=== PATIENT | female | born 1960 | race African-American/Black ===

== ENCOUNTER 2020-09-17 18:26 | Inpatient (IN) ==
[2020-09-17] MEDS ORDERED: Ondansetron 4 mg VIAL 2 MG/ML 2 ml VIAL IV ONE (19:06)
[2020-09-17] MEDS ORDERED: NS 0.9% 1000 ml BAG 1,000 ML IV ONE (19:14)
[2020-09-17 20:12] LABS: Hematocrit 46 % (35-47); Hemoglobin 15.3 g/dL (12.0-16.0); Mean Corpuscular HGB Conc 33 g/dL (31-36); Mean Corpuscular Hemoglobin 27 pg (27-31); Mean Corpuscular Volume 81 fL (80-97); Red Blood Count 5.66 10^6 /uL (3.70-4.87); Red Cell Distribution Width 14 % (10-15); White Blood Count 12.7 10^3/uL (3.5-10.8)
[2020-09-17 20:19] LABS: ABS Basophils 0.1 10^3/ul (0-0.2); ABS Lymphocytes 2.5 10^3/ul (1.0-4.8); ABS Monocytes 0.8 10^3/ul (0-0.8); ABS Neutrophils 9.3 10^3/ul (1.5-7.7); Eosinophil % 0.1 %; Lymphocyte % 19.4 %; Nucleated Red Blood Cells % 0.2
[2020-09-17] MEDS ORDERED: Ciprofloxacin 400mg IVPREMIX 400 MG/200 ML BAG IVPB ONE (20:28)
[2020-09-17 20:52] LABS: Albumin 4.5 g/dL (3.2-5.2); Albumin/Globulin Ratio 0.9 (1-3); BUN/Creatinine Ratio 19.6 (8-20); C Reactive Protein 63.17 mg/L (<8.01); Calcium 10.2 mg/dL (8.6-10.3); EGFR African American 62.9 (>60); Globulin 4.8 g/dL (2-4); Potassium 2.9 mmol/L (3.5-5.0); Total Bilirubin 1.4 mg/dL (0.2-1.0); Total Protein 9.3 g/dL (6.4-8.9)
[2020-09-17] MEDS ORDERED: Potassium Chlor 20 meq TAB.ER PO ONE (20:55)
[2020-09-17 20:59] LABS: Platelet Count 184 10^3/uL (150-450)
[2020-09-17 21:30] LABS: Magnesium 1.9 mg/dL (1.9-2.7)
[2020-09-18] MEDS ORDERED: Ondansetron 4 mg VIAL 2 MG/ML 2 ml VIAL IV PRN (01:49)
[2020-09-18] MEDS: KCL 10 MEQ/50 ML IVPREMIX 10 MEQ/50 ML BAG IV ONE ×2 (02:50)
[2020-09-18] MEDS: Morphine 2 MG/ML SYRINGE IV PRN ×3 (03:16→23:18)
[2020-09-18] MEDS ORDERED: Albuterol HFA INHALER 8 gm MDI INH PRN (03:19)
[2020-09-18] MEDS: Potassium Chlor 20 meq TAB.ER PO SCH ×2 (04:09→08:33)
[2020-09-18] MEDS: NS 0.9% 1000 ml BAG 1,000 ML IV SCH ×2 (04:11→15:50)
[2020-09-18 08:17] LABS: BUN/Creatinine Ratio 20.8 (8-20); Blood Urea Nitrogen 20 mg/dL (6-24); CO2 Carbon Dioxide 23 mmol/L (22-32); Calcium 8.8 mg/dL (8.6-10.3); Chloride 102 mmol/L (101-111); EGFR African American 71.3 (>60); EGFR Non-African American 58.9 (>60); Glucose 100 mg/dL (70-100); Sodium 136 mmol/L (135-145)
[2020-09-18] MEDS: Ondansetron ODT 4 mg TAB 4 MG TAB SL PRN ×2 (08:32→17:36)
[2020-09-18 08:33] LABS: Anion Gap 11 mmol/L (2-11)
[2020-09-18] MEDS: metroNIDAZOLE IV 500 MG/100ML 500 MG/100 ML BAG IVPB SCH ×3 (08:34→23:49)
[2020-09-18] MEDS ORDERED: Lisinopril/HCTZ 20/25 TAB (NF) PO SCH (09:00)
[2020-09-18] MEDS: cefTRIAXone 1 gm/50 mL NS BAG 1 GM/50 ML BAG IVPB SCH (11:22)
[2020-09-18 15:39] LABS: Magnesium 1.9 mg/dL (1.9-2.7); Potassium 3.2 mmol/L (3.5-5.0)
[2020-09-18] MEDS ORDERED: Potassium Chlor 20 meq TAB.ER PO ONE (18:34)
[2020-09-18] MEDS ORDERED: NS 0.9% 1000 ml BAG 1,000 ML IV SCH (18:38)
[2020-09-18] MEDS ORDERED: KCL 20 MEQ/100 ML IVPREMIX 20 MEQ/100 ML BAG IV SCH (19:00)
[2020-09-19 00:08] LABS: Urine Appearance Cloudy; Urine Bilirubin Negative (Negative); Urine Blood 3+ (Negative); Urine Color Yellow; Urine Glucose Negative (Negative); Urine Ketones Trace (Negative); Urine Nitrite Negative (Negative); Urine Protein Negative (Negative); Urine Specific Gravity 1.018 (1.010-1.030); Urine Urobilinogen Negative (Negative)
[2020-09-19 00:12] LABS: Urine Bacteria 1+ (Absent); Urine Red Blood Cell 3+(>10/hpf) (Absent); Urine Squamous Epithelial Cell Present (Absent); Urine White Blood Cell 3+(>20/hpf) (Absent)
[2020-09-19 07:33] LABS: ABS Eosinophils 0.1 10^3/ul (0-0.6); ABS Lymphocytes 2.7 10^3/ul (1.0-4.8); ABS Monocytes 0.6 10^3/ul (0-0.8); ABS Neutrophils 3.5 10^3/ul (1.5-7.7); Eosinophil % 1.1 %; Hematocrit 35 % (35-47); Hemoglobin 11.5 g/dL (12.0-16.0); Lymphocyte % 39.5 %; Mean Corpuscular HGB Conc 33 g/dL (31-36); Mean Corpuscular Hemoglobin 28 pg (27-31); Mean Corpuscular Volume 83 fL (80-97); Mean Platelet Volume 8.3 fL (7.4-10.4); Platelet Count 180 10^3/uL (150-450); Red Blood Count 4.18 10^6 /uL (3.70-4.87); Red Cell Distribution Width 14 % (10-15)
[2020-09-19 07:50] LABS: BUN/Creatinine Ratio 22.1 (8-20); Calcium 8.7 mg/dL (8.6-10.3); EGFR African American 91.9 (>60); Potassium 3.5 mmol/L (3.5-5.0)
[2020-09-19] MEDS: metroNIDAZOLE IV 500 MG/100ML 500 MG/100 ML BAG IVPB SCH ×2 (08:45→16:44)
[2020-09-19] MEDS: Potassium Chlor 20 meq TAB.ER PO SCH (10:31)
[2020-09-19] MEDS: cefTRIAXone 1 gm/50 mL NS BAG 1 GM/50 ML BAG IVPB SCH (10:32)
[2020-09-19] MEDS: Morphine 2 MG/ML SYRINGE IV PRN ×2 (10:32→17:25)
[2020-09-20] MEDS: metroNIDAZOLE IV 500 MG/100ML 500 MG/100 ML BAG IVPB SCH ×4 (01:01→23:34)
[2020-09-20] MEDS: Morphine 2 MG/ML SYRINGE IV PRN ×3 (08:43→22:52)
[2020-09-20] MEDS: Ondansetron ODT 4 mg TAB 4 MG TAB SL PRN (09:11)
[2020-09-20] MEDS: Potassium Chlor 20 meq TAB.ER PO SCH (09:11)
[2020-09-20] MEDS: cefTRIAXone 1 gm/50 mL NS BAG 1 GM/50 ML BAG IVPB SCH (10:08)
[2020-09-20] MEDS: Ondansetron 4 mg VIAL 2 MG/ML 2 ml VIAL IV PRN (15:15)
[2020-09-20] MEDS: HYDROcodone/ACETAMIN 5/325 mg TAB PO PRN (15:31)
[2020-09-21 06:38] LABS: ABS Eosinophils 0.2 10^3/ul (0-0.6); ABS Lymphocytes 2.3 10^3/ul (1.0-4.8); ABS Monocytes 0.4 10^3/ul (0-0.8); ABS Neutrophils 1.2 10^3/ul (1.5-7.7); Eosinophil % 3.8 %; Hematocrit 37 % (35-47); Lymphocyte % 55.9 %; Mean Corpuscular HGB Conc 33 g/dL (31-36); Mean Corpuscular Hemoglobin 27 pg (27-31); Mean Corpuscular Volume 83 fL (80-97); Mean Platelet Volume 8.3 fL (7.4-10.4); Nucleated Red Blood Cells % 0.2; Platelet Count 202 10^3/uL (150-450); Red Blood Count 4.45 10^6 /uL (3.70-4.87); Red Cell Distribution Width 14 % (10-15); White Blood Count 4.1 10^3/uL (3.5-10.8)
[2020-09-21 07:00] LABS: BUN/Creatinine Ratio 7.6 (8-20); Calcium 9.3 mg/dL (8.6-10.3); EGFR African American 109.8 (>60); EGFR Non-African American 90.7 (>60); Potassium 3.4 mmol/L (3.5-5.0)
[2020-09-21] MEDS: Potassium Chlor 20 meq TAB.ER PO SCH (07:00)
[2020-09-21] MEDS: HYDROcodone/ACETAMIN 5/325 mg TAB PO PRN ×2 (07:02→09:28)
[2020-09-21] MEDS: Ondansetron 4 mg VIAL 2 MG/ML 2 ml VIAL IV PRN (07:02)
[2020-09-21] MEDS: Morphine 2 MG/ML SYRINGE IV PRN (07:10)
[2020-09-21] MEDS: metroNIDAZOLE IV 500 MG/100ML 500 MG/100 ML BAG IVPB SCH ×2 (07:32→15:11)
[2020-09-21] MEDS ORDERED: Potassium Chlor 10 meq TAB PO ONE (08:25)
[2020-09-21] MEDS: cefTRIAXone 1 gm/50 mL NS BAG 1 GM/50 ML BAG IVPB SCH (09:28)
[2020-09-21] MEDS ORDERED: oxyCODONE/Acetamin 5/325 mg TAB PO PRN (11:39)
[2020-09-21 15:43] VITALS: BP 127/59
== END 2020-09-21 18:27 | disposition home or self-care (01) | DRG 872 ==
LOC: ED 18:26 → MEDTELE 09-18 01:29
PROVIDERS: ADMIT Internal Medicine; ATTEND Internal Medicine

== ENCOUNTER 2021-09-26 12:14 | Observation (INO) ==
[2021-09-26] MEDS ORDERED: Lactated Ringers 1000 ml BAG 1,000 ML IV ONE ×2 (12:21→14:21)
[2021-09-26] MEDS ORDERED: Pantoprazole 80 mg in NS BAG 80 MG/250 ML BAG IV ONE (12:27)
[2021-09-26] MEDS ORDERED: Pantoprazole VIAL 40 MG VIAL IV ONE (12:27)
[2021-09-26 12:45] LABS: ABS Eosinophils 0.1 10^3/ul (0-0.6); ABS Lymphocytes 1.7 10^3/ul (1.0-4.8); ABS Monocytes 0.2 10^3/ul (0-0.8); ABS Neutrophils 6.5 10^3/ul (1.5-7.7); Eosinophil % 0.8 %; Hematocrit 33 % (35-47); Hemoglobin 10.9 g/dL (12.0-16.0); Lymphocyte % 20.2 %; Mean Corpuscular HGB Conc 33 g/dL (31-36); Mean Corpuscular Hemoglobin 28 pg (27-31); Mean Corpuscular Volume 85 fL (80-97); Mean Platelet Volume 8.7 fL (7.4-10.4); Platelet Count 246 10^3/uL (150-450); Red Blood Count 3.87 10^6 /uL (3.70-4.87); Red Cell Distribution Width 15 % (10-15); White Blood Count 8.6 10^3/uL (3.5-10.8)
[2021-09-26] MEDS ORDERED: Lorazepam PYXIS KEY PRN (13:00)
[2021-09-26] MEDS ORDERED: LORazepam 2 mg VIAL 1 ml IV PUSH ONE (13:00)
[2021-09-26 13:01] LABS: Albumin 3.8 g/dL (3.2-5.2); Albumin/Globulin Ratio 1.1 (1-3); Globulin 3.4 g/dL (2-4); Potassium 3.2 mmol/L (3.5-5.0); Total Bilirubin 0.5 mg/dL (0.2-1.0); Total Protein 7.2 g/dL (6.4-8.9)
[2021-09-26] MEDS ORDERED: Iohexol 300 (CONTRAST) 10 ML SDV IV ONE (13:10)
[2021-09-26 14:19] LABS: Magnesium 1.9 mg/dL (1.9-2.7)
[2021-09-26] MEDS ORDERED: oxyCODONE/Acetamin 5/325 mg TAB PO PRN (15:24)
[2021-09-26] MEDS ORDERED: KCL 20 MEQ/100 ML IVPREMIX 20 MEQ/100 ML BAG IV SCH (16:00)
[2021-09-26] MEDS ORDERED: Potassium Chloride LIQUID 20 MEQ/15 ML LIQUID PO ONE (17:05)
[2021-09-26 17:45] LABS: Rapid COVID-19 Molecular Undetected (Undetected)
[2021-09-26 19:50] LABS: Hematocrit 27 % (35-47)
[2021-09-26] MEDS ORDERED: Acetaminophen IV 1 GM/100ML 100 ML IV ONE (23:30)
[2021-09-27] MEDS ORDERED: Morphine 2 MG/ML SYRINGE IV ONE ×2 (01:25→07:42)
[2021-09-27] MEDS: Pantoprazole 80 mg in NS BAG 80 MG/250 ML BAG IV SCH ×2 (01:46→13:03)
[2021-09-27 02:18] LABS: Hematocrit 26 % (35-47); Hemoglobin 8.7 g/dL (12.0-16.0)
[2021-09-27] MEDS ORDERED: Morphine 2 MG/ML SYRINGE IV PRN (04:30)
[2021-09-27 06:57] LABS: ABS Eosinophils 0.1 10^3/ul (0-0.6); ABS Lymphocytes 3.3 10^3/ul (1.0-4.8); ABS Monocytes 0.5 10^3/ul (0-0.8); ABS Neutrophils 3.4 10^3/ul (1.5-7.7); Hematocrit 28 % (35-47); Hemoglobin 9.2 g/dL (12.0-16.0); Lymphocyte % 45.4 %; Mean Corpuscular HGB Conc 34 g/dL (31-36); Mean Corpuscular Hemoglobin 28 pg (27-31); Mean Corpuscular Volume 84 fL (80-97); Mean Platelet Volume 8.6 fL (7.4-10.4); Nucleated Red Blood Cells % 0.1; Platelet Count 201 10^3/uL (150-450); Red Blood Count 3.26 10^6 /uL (3.70-4.87); Red Cell Distribution Width 15 % (10-15); White Blood Count 7.3 10^3/uL (3.5-10.8)
[2021-09-27 07:13] LABS: Albumin 3.8 g/dL (3.2-5.2); Albumin/Globulin Ratio 1.2 (1-3); Calcium 9.2 mg/dL (8.6-10.3); Globulin 3.3 g/dL (2-4); Potassium 3.2 mmol/L (3.5-5.0); Total Bilirubin 0.6 mg/dL (0.2-1.0); Total Protein 7.1 g/dL (6.4-8.9)
[2021-09-27] MEDS: Multivitamins/Minerals TAB PO SCH (07:44)
[2021-09-27] MEDS ORDERED: Morphine 2 MG/ML SYRINGE ONE (07:53)
[2021-09-27 12:54] LABS: Hematocrit 27 % (35-47); Hemoglobin 8.9 g/dL (12.0-16.0)
[2021-09-27] MEDS: Ondansetron 4 mg VIAL 2 MG/ML 2 ml VIAL IV PRN (13:08)
[2021-09-27] MEDS ORDERED: Midazolam 10 mg/10 ml VIAL 1 mg/ml 10 ml VIAL (10 mg) ONE (15:29)
[2021-09-27] MEDS ORDERED: diPHENhydraMINE IV 50 MG/ML 1 ml VIAL (BENADRYL) ONE (15:29)
[2021-09-27] MEDS ORDERED: fentaNYL 100 mcg/2 ml 50 MCG/ML VIAL ONE (15:29)
[2021-09-27] MEDS: oxyCODONE/Acetamin 5/325 mg TAB PO PRN (20:51)
[2021-09-27] MEDS: KCL 20 MEQ/100 ML IVPREMIX 20 MEQ/100 ML BAG IV SCH (22:05)
[2021-09-28] MEDS: KCL 20 MEQ/100 ML IVPREMIX 20 MEQ/100 ML BAG IV SCH (00:08)
[2021-09-28] MEDS: oxyCODONE/Acetamin 5/325 mg TAB PO PRN ×3 (02:34→14:54)
[2021-09-28 06:26] LABS: ABS Eosinophils 0.2 10^3/ul (0-0.6); ABS Lymphocytes 1.8 10^3/ul (1.0-4.8); ABS Monocytes 0.3 10^3/ul (0-0.8); ABS Neutrophils 2.2 10^3/ul (1.5-7.7); Eosinophil % 3.7 %; Hematocrit 26 % (35-47); Hemoglobin 8.6 g/dL (12.0-16.0); Mean Corpuscular HGB Conc 33 g/dL (31-36); Mean Corpuscular Hemoglobin 28 pg (27-31); Mean Corpuscular Volume 85 fL (80-97); Mean Platelet Volume 8.4 fL (7.4-10.4); Platelet Count 183 10^3/uL (150-450); Red Blood Count 3.04 10^6 /uL (3.70-4.87); Red Cell Distribution Width 15 % (10-15); White Blood Count 4.4 10^3/uL (3.5-10.8)
[2021-09-28 06:44] LABS: Calcium 9.1 mg/dL (8.6-10.3); Magnesium 2.1 mg/dL (1.9-2.7); Potassium 3.9 mmol/L (3.5-5.0)
[2021-09-28] MEDS: Multivitamins/Minerals TAB PO SCH (08:26)
[2021-09-28] MEDS: Pantoprazole 80 mg in NS BAG 80 MG/250 ML BAG IV SCH (08:45)
[2021-09-28] MEDS: Ondansetron 4 mg VIAL 2 MG/ML 2 ml VIAL IV PRN (13:57)
[2021-09-28 15:50] VITALS: BP 142/83
== END 2021-09-28 18:00 | disposition home or self-care (01) ==
LOC: EDHOLD 12:14 → ED 12:14 → SUATTDRO 16:10 → SSU 17:20
PROVIDERS: ADMIT Nurse Practitioner; ATTEND Internal Medicine